=== PATIENT | female | born 1935 | race Caucasian/White ===

== ENCOUNTER 2020-02-04 19:21 | Inpatient (IN) | payer MEDICARE, SELFPAY ==
--- NOTE | 2020-02-04 21:45 | DI.CT_ITS ---
EXAM: CT LOWER EXTREMITY LT WO CLINICAL HISTORY: distal tibia fracture, ?intraarticular split. TECHNIQUE: Imaging Protocol: Axial computed tomography images with coronal and sagittal reformatted images were created and reviewed. COMPARISON: No exams were available for comparison FINDINGS: Bones: There is a comminuted fracture of the proximal diaphysis of the fibula. The distal fracture is displaced laterally and anteriorly 1 shaft's width. The fracture is obliquely oriented. There is a nondisplaced fracture of the anterior aspect of the lateral malleolus. There is a comminuted frac ture involving the distal metadiaphyseal region of the tibia. There is impaction of the fracture. T he distal fracture is mildly posteriorly displaced relative to the proximal fracture. The fracture d oes not extend into the articular surface. There are tiny well corticated osseous fragments at the t ip of the medial malleolus suggesting old injury. The distal femur and patella are unremarkable. Th e visualized tarsal bones are intact. No lytic or sclerotic lesions are identified. Soft Tissues: There is swelling of the soft tissues in the leg. There is atherosclerosis present. IMPRESSION: Fractures involving the proximal and distal fibula and the distal tibia as described above. DATA REPOSITORY: All CT scans at this facility are submitted to the National Radiology Data Registry (NRDR) Dose Index Registry (DIR) with the [employer] ([employer]). RADIATION OPTIMIZATION: All CT scans at this facility use at least one of these dose optimization te chniques: automated exposure control; mA and/or kV adjustment per patient size (includes targeted exa ms where dose is matched to clinical indication); or iterative reconstruction.
[2020-02-04 22:05] VITALS: BP 157/79; PULSE 79; RESP 20; TEMP 37.2; O2SAT 96
[2020-02-04 22:07] VITALS: BP 157/79; PULSE 79; RESP 20; TEMP 37.2; O2SAT 96
--- NOTE | 2020-02-04 22:16 | DI.VRAD_ITS ---
PROCEDURE INFORMATION: Exam: CT Left Lower Extremity With Contrast; Lower Leg Exam date and time: 02/04/2020 19:25 Age: 84 years old Clinical indication: Injury or trauma; Fall; Initial encounter; Blunt trauma; Lower leg; Left; Injury date: 02/04/20; Injury details: Fell on ice, distal tibia FX, ? intraarticular split TECHNIQUE: Imaging protocol: CT of the Left lower extremity with intravenous contrast was performed. Exam focused on the lower leg. Radiation optimization: All CT scans at this facility use at least one of these dose optimization techniques: automated exposure control; mA and/or kV adjustment per patient size (includes targeted exams where dose is matched to clinical indication); or iterative reconstruction. COMPARISON: No relevant prior studies available. FINDINGS: Bones/joints: The bones are demineralized. The distal femur and proximal tibia are intact. Acute oblique fracture proximal fibular diaphysis with 1 shaft with distal lateral angulation and mild distal anterior angulation. Acute nondisplaced fracture of the lateral malleolus . Acute comminuted fracture distal tibial diaphysis, mild distal posterior angulation, moderate sized butterfly fragment medially, medial-lateral alignment nearly anatomic. Mild impaction. There is a very faint fracture component extending distally toward the metaphysis however there is no convincing intra-articular fracture involvement. Coarse calcifications about the ankle are most suggestive of chronic ligamentous injury. The talar dome appears intact. The calcaneus and visualized midfoot appear intact. The patella is intact. No dislocation. Soft tissues: Generalized soft tissue swelling. Vasculature: Atherosclerosis. IMPRESSION: Acute fractures of the proximal fibular diaphysis, distal tibial diaphysis and of the lateral malleolus. Dictated and Authenticated by: Era Serrano MD. Ordering:NORMA Clark MD
[2020-02-05] VITALS (10 sets, daily range): BP systolic 102–163; BP diastolic 65–88; PULSE 82–95; RESP 11–20; TEMP 36.2–36.9; O2SAT 93–98
--- NOTE | 2020-02-05 07:53 | HPE_ITS ---
Date of service: 02/05/20 Time of Service: 06:53 Assessment and Plan Assessment and plan (1) Fracture of tibia with fibula, left, closed: Status: Acute Assessment and plan: Bridget is an 84-year-old who suffered a tib-fib fracture of the left leg. This is a distal diaphyseal fracture with some extension into the metaphysis but no extension of the joint. Given the distal extent of the fracture I do believe we can treat this with intramedullary nail. This would allow mobilization earlier as well as less soft tissue dissection with a given risk of complications. She is a very active 84-year-old, however, she is 84 years old and I was very clear with Bridget that returning home will be challenging. However, I will try to help her accommodate her restrictions to allow her to get home soon as possible. She has no active medical issues. I will obtain an EKG given her intermittent hypertension and her age before surgery. I discussed treatment options with her and I do recommend stabilization of the fracture with an intramedullary device. I discussed the risk to include bleeding, infection, pain, stiffness, damage to nerves and vessels, damage to muscles and tendons, hardware prominence, hardware failure, malunion, nonunion, blood clot, cardiopulmonary demise, weakness. Despite these risks, she elects to proceed. She will be toe-touch weightbearing after the surgery. We will use Lovenox for initial blood clot prevention and then transition to aspirin. Her daughter reports that Bridget has a sensitivity to any stronger pain medication so we will go very cautiously on using these. Qualifiers: Encounter type: initial encounter Qualified Code(s): S82.202A - Unspecified fracture of shaft of left tibia, initial encounter for closed fracture; S82.402A - Unspecified fracture of shaft of left fibula, initial encounter for closed fracture (2) Hypertension: Status: Chronic Assessment and plan: We will continue to follow this conservatively. Her blood pressures have overall been controlled although running slightly high. She does not take anything for this at baseline and therefore I will hold off on giving her anything at this time. Qualifiers: Hypertension type: essential hypertension Qualified Code(s): I10 - Essential (primary) hypertension History of Present Illness History of Present Illness Chief Complaint: Left leg pain Narrative: Bridget is an 84-year-old who was clearing some snow earlier yesterday. Her foot got stuck in the snow when she was hit by falling snow and had a fall with a twisting motion. She had immediate pain. She had crepitus. She is unable to ambulate. She was seen in [facility]. She was diagnosed with a comminuted distal tibia and proximal fibula fracture. She had no loss of consciousness. She denied head trauma. She was evaluated by the emergency department who called me for consultation and transfer. On evaluation this morning, she denies any chest pain or shortness of breath. She has no headache, vision changes, confusion. She denies pain in the right leg. Her pain is been controlled within the splint. She denies numbness or tingling. She has been able to void on the bedpan. Review of Systems All systems reviewed & are unremarkable except as noted in HPI and below [facility] Medical History (Updated 02/05/20 @ 08:03 by Eduardo Cadet MD) Glaucoma (Chronic) Social History Smoking/Tobacco Use Status: Former Tobacco Use Tobacco: How many years used: 50 Alcohol Intake: current Alcohol Intake frequency: 0-2 drinks per day Alcohol type: wine Drug use: Never Substance use type: does not use Do you feel safe at home: Yes Do you feel safe in your relationship?: Yes Meds Home Medications and Allergies Allergies Allergy/AdvReac Type Severity Reaction Status Date / Time egg Allergy Severe Hives Unverified 02/04/20 22:08 strawberry Allergy Intermediate Hives Unverified 02/04/20 22:10 chicken derived AdvReac Intermediate Diarrhea Unverified 02/04/20 22:10 ENVIRONMENTAL AdvReac Mild Other (See Uncoded 02/04/20 22:10 Comment) Exam Const General: cooperative, healthy appearing, comfortable and no acute distress Nutritional Appearance: average body habitus Orientation: alert, awake and oriented x3 HENMT Head: normal to inspection, normocephalic and atraumatic Resp Effort & Inspection: normal respiratory effort Auscultation: clear to auscultation bilaterally Cardio Rate: regular rate Rhythm: regular rhythm Extrem Other: Left lower extremity is in a splint. Due to patient pain, the splint is not fully removed but the Munir wrap was windowed to evaluate the left leg. This showed no skin changes or skin lacerations. She had soft compartments. Faintly palpable DP pulse. She was able to actively flex and extend the great toe. Sensation is grossly intact to light touch of the deep and superficial peroneal nerve and tibial nerve. The foot is warm and well-perfused. Results Imaging Imaging Studies: X-ray of the left tibia and fibula was reviewed from outside hospital. This demonstrates a comminuted distal tibia fracture with a displaced proximal fibula fracture. There is no apparent extension into the joint surface. CT scan of the left lower extremity identifies the distal tibia fracture. It does not show a clear fracture into the joint space. The distal extent of the fracture is approximate 25 mm above the joint surface. There is marked comminution at the level of the fracture with an oblique orientation of the fracture moving a lateral to medial, proximal to distal. There is a comminuted fracture of the proximal fibula with displacement. There also appears to be a small linear fracture within the distal aspect of the fibula. There is no incongruity of the distal tib-fib joint. Joint spaces well-maintained within the tibiotalar joint. Labs Labs: Outside labs were performed and not repeated. They demonstrated a white blood cell count of 12.9, hemoglobin of 12.2, hematocrit 37.7, platelets of 256. Sodium was 141, potassium 4.0, BUN 14, and creatinine 0.6. Her glucose was 94. Last Vital Signs Temp 36.2 C L 02/05/20 07:44 Pulse 92 H 02/05/20 07:44 Resp 17 02/05/20 07:44 BP 123/78 02/05/20 07:44 Pulse Ox 95 02/05/20 07:44 COVID-19 Screening Traveled to [place] from one of the affected countries or regions?: No Recent travel in the [place] within the last 8 weeks?: No Recent out of the country travel within the last 8 weeks?: No Exposure or possible exposure to illness during travel?: No Had IN PERSON contact w/suspected or confirmed C-19 person: No Have you had the following symptoms in the past few days?: No Symptoms noted since travel?: No Symptoms
[2020-02-05] MEDS: Lactated Ringers 1,000 ML 80 ML IV (08:00)
--- NOTE | 2020-02-05 08:50 | ROE_ITS ---
Date of service: 03/21/19 Time of Service: 14:07 Operative Note Operative Note PRE-OP DIAGNOSIS: [SIDE] Tibia and Fibula Fracture POST-OP DIAGNOSIS: same PROCEDURE: [Side] Intramedullary Fixation of Tibia Fracture SURGEON: Eduardo Cadet ANESTHESIA: ROHITH ESTIMATED BLOOD LOSS: 100 PATHOLOGY: none sent COMPLICATIONS: None Patient was transported to: PACU Patient's condition: stable Implants: Depuy-Synthes Tibial Nail EX [11]mm x [length]mm Indications: [Patient name and age] who presented to the Emergency Department after a fall. X-rays confirmed the diagnosis of a [intertrochanteric] fracture of the [SIDE] tibia. I reviewed the possible treatment options and given the fracture, I recommended operative fixation. I discussed the technical details of the surgery. I reviewed the risks such as bleeding, infection, pain, stiffness, malunion, nonunion, hardware prominence, hardware faiilure, malrotation, damage to nerves and vessels, blood clot. Despite these risks, [gender] agreed to proceed. Findings: There was a fracture of the tibia which was reduced with traction and internal rotation and external manipulation. This was secured with the IMN and screws. Procedure Description: [Patient Name] was greeted in the preoperative area. Consent was previously reviewed and signed. Once in the operating room, anesthesia was administered. The patient was transferred to the fracture table in the supine position. [Gender] was positioned in the supine position with the operative side placed onto a bone foam ramp. All bony prominences were well padded. Arms were placed out to the side, padded, and secured. [A single dose of TXA, 1 gram, was then administered IV. ]Prophylactic antibiotics, [Cefazolin 2 grams], was given for prophylactic antibiotics. A timeout was performed for safe surgery. The [side] leg was prepped with Chloraprep. The leg was draped with a stockinette and U drapes. An incision was then made over the lateral aspect of the knee. This was taken down from the midpoint of patella at his lateral margin following the lateral aspect of the patellar tendon down to the tibial tubercle. The skin was incised sharply. The retinacular tissues were then incised sharply as well. The synovium underlying this was visualized and bluntly dissected off of the anterior, proximal tibia. The patella was mobilized medially allowing access to the central portion of the proximal tibia. A starting position in line with the axis of the tibia, approximate the level of the lateral spine, and at the ventral edge of the proximal tibia was made with the awl. X-ray in both the AP and lateral views were used to confirm this positioning. The awl was then advanced manually into the proximal tibia. This was once again confirmed to be in good position on the AP and lateral views. The ball-tipped guidewire was then inserted through the awl and into the proximal tibia. A bend in the guidewire was placed prior to insertion allowing it to make the turn off the back of the tibia. Reduction maneuver was then pe rformed of the fracture. Gentle traction and some internal rotation was used to grossly reduce the fracture fragments. Focus was made sure to restore normal rotational alignment of the leg in length. Individual fragment management was not pursued. [A clamp was used to help secure and hold these pieces in appropriate position.] The ball-tipped guidewire was then advanced across the fracture site into the distal tibia. It was confirmed to be in appropriate positions on both the AP and the lateral. This was then measured. Using a tissue protector to protect proximal tissues, the tibia was reamed from 8.5 mm to [12]mm. The [11]mm x [300]mm Synthes tibial nail EX was opened. The nail was assembled to the aiming arm on the back table and confirmed to be aligned with the trochars for screw insertion. Using manual force the nail was advanced into the tibia. A few light mallet blows advanced the nail through the proximal tibia and down into his final seated position of the distal tibia, approximate the level of the physeal scar. The targeting device was removed. AP and lateral x-rays of both the hip and the knee confirmed appropriate positioning within the femur and with good alignment of the fracture. The c-arm was moved to the knee where perfect circles were obtained for distal screw placement. The skin and deeper tissues were incised down to the femur. The drill was taken through the femur, nail, and opposite cortex. This was measured. The screw was inserted with good purchase and bite. Lateral x-ray showed the screw was through the nail and then an AP image confirmed appopriate length. Final x-rays were obtained. The wounds were thoroughly irrigated. 0.5% Bupivacaine was injected throughout the wounds over the leg. The deep fascia of the proximal two wounds was reapproximated with a 0 Vicryl. The deep tisses were closed with a 2-0 Vicryl and the skin was closed with karla. At the end of the case, all counts were correct. [Name] tolerated the procedure well without known complication and was taken to the PACU for recovery. Physical therapy will start post-operatively, weigh-bearing as tolerated with assistive devices. Anticoagulation will start within 12-24 hours. 3 doses of post-operative antibitiocis for prophylaxis will
--- NOTE | 2020-02-05 09:01 | INITIAL_ITS ---
- If Service Date Differs Date of service: 02/05/20 Time of Service: 09:01 Care Management Initial Assess REASON FOR HOSPITALIZATION:: Fracture tibia and fibula left leg PAST MEDICAL HISTORY/PAST SURGICAL HISTORY:: Glaucoma PREVIOUS FUNCTIONAL STATUS/SOCIAL/FAMILY SUPPORTS:: Bridget lives in [facility] with her Javon. CURRENT FUNCTIONAL STATUS:: Unable to meet with Bridget as she was in surgery most of the day. ADVANCE DIRECTIVES:: None on file CODE STATUS:: Full Code INSURANCE COVERAGE / FINANCIAL ISSUES:: Medicare. AARP PRIMARY CARE PHYSICIAN:: Juan Denson POTENTIAL DISCHARGE NEEDS:: Follow up with PCP and discharge plan of care PATIENT/FAMILY EDUCATION NEEDS:: Discharge plan, limitations, follow up plan and Ask Me Three
--- NOTE | 2020-02-05 11:45 | DI.RAD_ITS ---
EXAM: XR TIB/FIB LT CLINICAL HISTORY: LEFT TIBIAL FX TECHNIQUE: 2D and realtime digital imaging was performed. CONTRAST MATERIAL: Refer to procedure report. COMPARISON: CT LOWER EXTREMITY LT WO from 02/04/2020 ANKLE MIN 3V LT from 02/04/2020 FINDINGS: Fluoroscopy was provided for Dr. Cadet during the performance of a reduction and internal fixatio n of the distal left tibial fracture.. Please refer to the procedure report for complete details. Fluoro time: 184.9 seconds RADIATION DOSE DELIVERED:
[2020-02-05] MEDS: ceFAZolin 2 GM/50 ML BAG IVPB (12:19)
[2020-02-05] MEDS: Normal Saline 1,000 ML 80 ML IV (15:40)
--- NOTE | 2020-02-05 16:31 | PHA.ADMREV ---
Pharmacy Clinical Review - Admission Clinical Review (Last Updated 02/04/20 @ 22:28 by Daphne Valverde LPN) Fracture of tibia with fibula, left, closed (Acute) egg Allergy (Severe, Unverified 02/04/20 22:08) Hives strawberry Allergy (Intermediate, Unverified 02/04/20 22:10) Hives chicken derived Adverse Reaction (Intermediate, Unverified 02/04/20 22:10) Diarrhea ENVIRONMENTAL Adverse Reaction (Mild, Uncoded 02/04/20 22:10) Other (See Comment) Height 5 ft 7 in Weight 83.1 kg TIBIA/FIBULA FRACTURE- SURGERY 02/05/20 - Renal Dosing Medications needing adjustments: Reviewed (No creatinine avail, no labs) - Anticoagulation DVT Prohphylaxis: Reviewed Medications: Enoxaparin (starting 24h post-op) Therapeutic Anticoagulation: N/A - Opiate Usage Evaluate Pain Scale/Pains Meds: Reviewed (Morphine IVP, Tramadol) Scheduled Bowel Reg ordered if on Opiates?: No (no bowel meds ordered) - Relevant Labs Electrolytes, C-Reactive P, ESR: N/A (no labwork available) - Antimicrobial Stewardship Antibiotic appropriateness: N/A Surgical Abx d/c within 24 hr: No (Cefazolin does not have 24 hour stop but will monitor) Culture review/Resistance: N/A - DM Control Insulin Dosing: N/A - Heart Failure/OH EF%, JAZ's, B-Blockers, Diuretics: N/A - BP Control BP Control: Blood Pressure [Right Arm] 163/77 Blood Pressure 148/83 Blood Pressure 154/88 Blood Pressure 159/79 Blood Pressure 159/77 Blood Pressure 156/80 Blood Pressure 139/82 Blood Pressure 150/87 Blood Pressure 123/78 If elevated: Reviewed (no home meds, no BP meds) - QTc Review If Elevated: Reviewed (QTC 423) - IV to PO Switch IV Medications: Reviewed (Toradol, Zofran, Lovenox) - Home Meds Home Med List reviewed: N/A - Current meds Current Medication Order Review: Reviewed (Anticipate discharge soon)
--- NOTE | 2020-02-05 16:51 | ROE_ITS ---
Date of service: 02/05/20 Time of Service: 15:22 Operative Note Operative Note DATE OF PROCEDURE: 02/05/20 PRE-OP DIAGNOSIS: Left Tibia and Fibula Fracture POST-OP DIAGNOSIS: same PROCEDURE: Left Intramedullary Fixation of Tibia Fracture SURGEON: Eduardo Cadet [employer]HALT SURFACE HEATER OPERATOR: Joi Colvin ANESTHESIA: regional and spinal ESTIMATED BLOOD LOSS: 150 PATHOLOGY: none sent TOURNIQUET TIME: 0 COMPLICATIONS: None Patient was transported to: PACU Patient's condition: stable Implants: Depuy-Synthes Tibial Nail EX 11mm x 330mm Indications: Bridget is a 84yo female who presented to the Emergency Department at [facility] in [place], [place] after a fall while removing snow. X-rays confirmed the diagnosis of a comminuted distal tibia fracture of the left tibia along wih a proximal fibula fracture. I reviewed the possible treatment options and given the fracture, I recommended operative fixation. I discussed the technical details of the surgery. I reviewed the risks such as bleeding, infection, pain, stiffness, malunion, nonunion, hardware prominence, h ardware faiilure, malrotation, damage to nerves and vessels, blood clot. Despite these risks, Bridget agreed to proceed. Findings: There was a fracture of the tibia which was reduced with traction and internal rotation and external manipulation, held with a clamp. This was secured with the IMN and screws. Procedure Description: Brigdet was greeted in the preoperative area. Consent was previously reviewed and signed. Once in the operating room, spinal anesthesia was administered. Prior to going into the OR, a popliteal and adductor block was administered by Jaz Serra CRNA and Doug Mcfadden CRNA. The patient was transferred to the fracture table in the supine position. She was positioned in the supine position with the operative side placed onto a bone foam ramp. All bony prominences were well padded. Arms were placed out to the side, padded, and secured. A single dose of TXA, 1 gram, was then administered IV. Prophylactic antibiotics, Cefazolin 2 grams, was given for prophylactic antibiotics. A timeout was performed for safe surgery. The left leg was prepped with Chloraprep. The leg was draped with a stockinette and U drapes and an extremity drape. An incision was then made over the lateral aspect of the knee. This was taken down from the midpoint of patella at the l ateral margin following the lateral aspect of the patellar tendon down to the tibial tubercle. The skin was incised sharply. The retinacular tissues were then incised sharply as well. The synovium underlying this was visualized and bluntly dissected off of the anterior, proximal tibia. The patella was mobilized medially allowing access to the central portion of the proximal tibia. A starting position in line with the axis of the tibia, approximate the level of the lateral spine, and at the ventral edge of the proximal tibia was made with the awl. X-ray in both the AP and lateral views were used to confirm this positioning. The awl was then advanced manually into the proximal tibia. This was once again confirmed to be in good position on the AP and lateral views. The ball-tipped guidewire was then inserted through the awl and into the proximal tibia. A bend in the guidewire was placed prior to insertion allowing it to make the turn off the back of the tibia. Reduction maneuver was then performed of the fracture. Gentle traction and some internal rotation was used to grossly reduce the fracture fragments. Focus was made sure to restore normal rotational alignment of the leg in length. Individual fragment management was not pursued. Going between the lateral and the AP, x-ray was used to confirm reductinon was achieved. A Griggs clamp was used to help secure and hold these pieces in appropriate position. The ball-tipped guidewire was then advanced across the fracture site into the distal tibia. It was confirmed to be in appropriate positions on both the AP and the lateral. This was then measured. Using a tissue protector to protect proximal tissues, the tibia was reamed from 8.5 mm to 12.5mm. The 11mm x 330mm Synthes tibial nail EX was opened. The nail was assembled to the aiming arm on the back table and confirmed to be aligned with the trochars for screw insertion. Using manual force the nail was advanced into the tibia. A few light mallet blows advanced the nail through the proximal tibia and down into the final seated position of the distal tibia, approximately at the level of the physeal scar. AP and lateral x-rays of both the knee and the ankle and the entire tibia was performed. They show appropriate positioning of the tibial nail. Starting distally, perfect circles were obtained for each screw. Three distal locking screws were placed. These were inserted to be bicortical but prominence was attempted to be minimized as much as possible without compromising stability and screw purchase. Attention was then turned to the proximal aspect. Through the targeting arm, two 5.0 millimeter screws were placed. One was placed in the dynamic hole and the other was placed in the static hole. These were placed without difficulty and once again were ensured to be bicortical. The targeting device was removed. AP and lateral x-rays of were taken of the tibia and fibula. The fracture site is once again investigated and showed to be well aligned as was the overall alignment of the leg. The deep tissues and superficial tissues of the leg and the incision sites were injected with a mixture of 50 cc of 0.25% bupivacaine, 30 mg ketorolac, and 10 cc of Exparel. The wounds were thoroughly irrigated. The retinaculum of the knee was reapproximated with a running #1 Vicryl. The deep tissue was closed with a 2-0 Vicryl followed by running 3-0 Monocryl. The smaller wounds for screw placement were closed with Vicryl and Monocryl in a similar fashion. 4x4 gauze and Kerlix dressing was placed over the wounds. These were wrapped in an JAZ wrap. A fracture walker boot was applied. At the end of the case, all counts were correct. Bridget tolerated the procedure well without known complication and was taken to the PACU for recovery. Physical therapy will start post-operatively, partial weightbearing with assistive devices. Anticoagulation will start within 12-24 hours. 3 doses of post-operative antibiotics for prophylaxis will be administered.
[2020-02-05] MEDS: ceFAZolin 1 GM/50 ML BAG IVPB (17:59)
[2020-02-06] VITALS: BP 120/68; PULSE 87; RESP 17; TEMP 36.8; O2SAT 97
[2020-02-06] MEDS: ceFAZolin 1 GM/50 ML BAG IVPB ×2 (01:27→08:57)
[2020-02-06] MEDS: Normal Saline 1,000 ML 80 ML IV (03:55)
[2020-02-06 07:00] LABS: HCT 33.8 % (36.0-46.0); HGB 10.6 g/dL (12.0-15.5); Mean Corp. HGB Concentration 31.4 g/dL (32.0-36.0); Mean Corpuscular Hemoglobin 29.9 pg (27.0-33.0); Mean Corpuscular Volume 95.5 fL (80-95); Mean Platelet Volume 9.8 fL (8.0-11.0); Platelet Count 251 x1000/uL (130-400); RBC 3.54 m/cumm (4.00-5.20); RBC Distribution Width 13.3 % (11.7-14.6)
[2020-02-06 07:25] LABS: Anion Gap 8.8 mmol/L (3-11); BUN 11 mg/dL (7-18); CO2 25.2 mmol/L (21.0-32.0); CREATININE 0.69 mg/dL (0.55-1.02); Calcium 8.6 mg/dL (8.5-10.1); Chloride 108 mmol/L (98-107); Glucose 109 mg/dL (74-106); Potassium 3.9 mmol/L (3.5-5.1); Sodium 142 mmol/L (136-145)
[2020-02-06 07:43] VITALS: BP 143/73; PULSE 84; RESP 17; TEMP 36.8; O2SAT 97
[2020-02-06] MEDS: Acetaminophen 500 MG TAB 1000 MG PO (07:45)
[2020-02-06] MEDS: Enoxaparin 40 MG/0.4 ML SYR SC (07:46)
[2020-02-06 08:04] VITALS: O2SAT 95
--- NOTE | 2020-02-06 08:18 | IN_ITS ---
Date of service: 02/06/20 PT Notes Visit Reasons: LEFT TIB-FIB FRACTURE Inpatient Physical Therapy Evaluation Date: February 06, 2020 Referring Doctor: Eduardo Cadet MD PT Orders: PT CONSULT: Status post left tibia intramedullary nailing. Precautions: Partial weightbearing with boot, fall risk Patient Profile/Admitting Diagnosis: Bridget is an 84-year-old who was clearing some snow 02/04/2020. Her foot got stuck in the snow when she was hit by falling snow and had a fall with a twisting motion. She had immediate pain. She had crepitus. She was unable to ambulate. She was seen in [facility]. She was diagnosed with a comminuted distal tibia and proximal fibula fracture. She had no loss of consciousness. Transferred to [facility] for orthopedic intervention. PMHX: Medical History (Updated 02/05/20 @ 08:03 by Eduardo Cadet MD) Glaucoma (Chronic) Social History/Home Situation: Has 2 homes. Patient lives with her . She will be residing in a home with 1 step into the dwelling with a post for support. This is a single level home. Current Functional Limitations: Ambulation, stair negotiation, weightbearing left lower extremity, functional mobility Equipment Owned/DME: Wheelchair, quad cane, crutches, front wheeled walker. Patient admits she did not use any of these at baseline prior to her injury Subjective: Patient states that she is holding up quite well. Minimal pain complaints. She think she will be staying in the hospital for a couple of days as per her conversation with the doctor. Rested comfortably last night. Objective: General Observation: IV port in left upper extremity Mental Status: Alert and oriented x3 Pain: 2/10 with a sensation in her knee. Denies that it is very painful. ROM: Right Upper Extremity: Glenohumeral joint flexion 120, 140 active assisted, elbow flexion and extension within normal limits, wrist range of motion within functional limits Left Upper Extremity: Glenohumeral joint flexion 90 degrees, 120 active assisted, elbow flexion and extension within normal limits, wrist range of motion within functional limits Right Lower Extremity: Within functional limits hip flexion, abduction, knee flexion, knee extension, ankle range of motion Left Lower Extremity: Hip active range of motion 20 degrees above chair in sitting, abduction within normal limits, knee flexion 105 degrees limited due to approximation of walking boot, extension within normal limits. Ankle range of motion not tested. Did observe patient able to flex and extend toes within basis of walking boot. Strength: Right Upper Extremity: 4/5 glenohumeral joint flexion and abduction, 4+/5 bicep and tricep, good senior clinical research scientist. Left Upper Extremity: 4-/5 glenohumeral joint abduction, 4/5 flexion, 4+/5 bicep and tricep, good senior clinical research scientist. Right Lower Extremity: 4/5 throughout. She is able to maintain 0 degree knee extension with straight leg raise. Plantar and dorsiflexion 4+/5 Left Lower Extremity: Hip flexion 4/5, knee extension 5 degree lag with straight leg raise, hamstring 4-/5. Plantar and dorsiflexion not tested Sensation: Reports intact sensation to light touch throughout bilateral lower extremities Bed Mobility/Transfers: Bed mobility not tested. Start of evaluation patient was seated in automatic recliner. Following ambulation she returned to the recliner. Nursing was notified. Patient did not have chair alarm in place. Sit to stand: Min assist x1 to front wheeled walker. Stand to sit: Contact-guard x1 from front wheeled walker with verbal cues for hand positioning Gait: Patient ambulated 15 feet x 2 with contact-guard x1 with front wheeled walker. She needed numerous reminders of partial weightbearing for left lower extremity. Denied any pain with her ambulation. Also required verbal cues with transitioning/turning/changing directions. Patient denies any dizziness or lightheadedness with ambulation. Balance: Static Sitting: Good Dynamic Sitting: Good Static Standing: Good Dynamic Standing: Fair Special Tests: Mobility Limitations Standardized Measure [facility] AM-PAC 6 clicks Basic Mobility Inpatient Short Form: Raw Score: 18 standardized Score: 43.63 CMS Score: 46.58 CMS Modifier: CK Informed Consent/Education: Patient instructed in purpose of PT consult and plan of care. Assessment: Patient is a 84 year old female referred to physical therapy services with the diagnosis of status post left tibia intramedullary nailing on 02/05/2020. Patient presents with clinical signs and symptoms consistent with post operative diagnosis. Patient presents with clinical signs and symptoms consistent with post operative diagnosis. She currently demonstrates the following impairment level findings: 1. Decreased strength to LLE hip and knee major muscle groups. 2. Impaired standing balance 3. Impaired activity tolerance 4. Limitation of joint range of motion left ankle Impairments are contributing to the following functional limitations: 1: Increased dependence with transfers 2. Inability to safely ambulate without assisstive device and physical assistance 3. Increase completion time for mobility ADL performance 4. Increased fall risk. 5. Inability to negotiate stairs alone safely Patient is assessed as a X low 01980 [] Moderate 50416 [] High 67251 complexity based on the following: History: See above Examination: See above Presentation: Stable Decision Making: Low 13031 Goals: Goals X1 week 1. Supine-Sit: Independent 2. Sit-Supine: Independent 3. Sit-Stand: Supervision with front wheeled walker 4. Stand-Sit: Supervision from front wheeled walker 5. Bed-Chair: Supervision with front wheeled walker 6. Chair-Bed: Supervision with front wheeled walker 7. Gait 150 feet with front wheeled walker and partial weightbearing left lower extremity with supervision 8. Stairs: Patient able to negotiate 1 step up and down as required to enter and exit her home Plan of Care/Treatment Plan: 1x/day, 7 days/week x 1 week. Plan of care has been reviewed with the FORESTRY CONSULTANT providing the service under Physical Therapy direction. Initiate Physical Therapy intervention for strengthening, bed mobility, transfers, gait, stairs, balance training, use of assistive device. DISCHARGE RECOMMENDATIONS: Recommend discharge to home with home health services once medically cleared TREATMENT CODE/TIME: Initial evaluation 19509, 830 to 9:00 Disclaimer: This note was created using [employer] voice recognition software. It was reviewed for major content. However, there may be multiple small discrepancies and errors due to the voice recognition aspects of the software. Thank you for this consult, Dameon Lara PT, DPT
--- NOTE | 2020-02-06 10:27 | W.PM.DS.N ---
Date of service: 02/06/20 Time of Service: 10:28 DS: Diagnosis Discharge Diagnosis (1) Fracture of tibia with fibula, left, closed: Status: Acute (2) Hypertension: Status: Chronic Discharge Plan Disposition Patient Disposition: HOME W/HOME HEALTH SERVICE Condition: Improving Discharge Details Reason For Visit: LEFT TIB-FIB FRACTURE Admit Date/Time: 02/04/20 19:21 Admit Provider: Eduardo Cadet Attending Provider: Eduardo Cadet [facility] Hospital Course: Bridget was admitted directly from [facility] emergency department for a distal tibia and fibula fracture of the left leg. She was taken to the operating room on hospital day #2 and underwent interventional nail fixation of the left distal tib-fib fracture. She was able to manage partial weightbearing postoperatively with no pain complaints. While limited due to the leg, she was able to mobilize with nursing and with physical therapy, well enough to be stable for discharge home with home health services. Home Meds and New Rx's Prescriptions: New aspirin 81 mg tablet,delayed release (DR/EC) 81 mg PO BID Qty: 60 RF: 0 acetaminophen 500 mg tablet 1,000 mg PO Q8H PRN (Reason: pain) Qty: 90 RF: 3 ibuprofen 600 mg tablet 600 mg PO TID PRNQty: 90 RF: 3 tramadol 50 mg tablet 50 mg PO Q6H PRNQty: 10 RF: 0 Discharge Instructions Additional Instructions: Activity: You may put some weight on the leg with the walker boot in place. However, you should use the walker when walking for the first 6 weeks. This will give the leg a time to heal. You should keep the leg elevated as much as possible for the first 2 weeks. You should wear the fracture walking boot when you are up and mobilizing, but may remove it when not and move your ankle as tolerated. Dressings: You should keep the initial dressing on for the first week. After 7 days, you may remove the inital dressing and get the wounds wet in the shower. You should keep it covered with a light gauze dressing or wrap for the first 2 weeks. All sutures are buried in the skin and do not need to be removed. Medications: - You should take Tylenol and Ibuprofen around the clock for baseline pain. - You have been prescribed a stronger pain medication, Tramadol, for breakthrough pain. Follow-up: We will schedule a telephone follow-up in 2 weeks. Office follow-up in 6 weeks. If you have any pressing concerns, please don't hesitate to call Dr. Cadet at the office, , or on his cell, [phone]. 1. Encounter Date and Reason I certify that BRIDGET LEONARDO was seen by Eduardo Cadet MD on 02/06/20 and that I had a [id number] encounter with this patient that meets the physician face to face encounter requirements. 2. Clinical Findings Supporting Skilled Need and Homebound Status I certify that home health services are medically necessary, include either intermittent prison and/or physical/speech therapy, and that this patient is homebound in that absences from the home require considerable and taxing effort and are infrequent or of short duration, or are attributable to the need to receive medical care. [X] (a) Attached documentation from encounter provides clinical findings supporting skilled need and homebound status (including what assistance patient requires to leave the home). The encounter with the patient was in whole, or in part, for the following medical condition, which is the primary reason for home health care: LEFT TIB-FIB FRACTURE [facility]: Physical Therapy: Bridget would benefit from physical therapy to help with her notable gait abnormalities and weakness. She is s/p intramedullary nail fixation of a left distal tibia fracture. She is partial weight bearing of the left leg with the fracture walker boot. She should use an assistive device at all times for mobilization for the first 6 weeks. She may remove the boot when not ambulating or mobilizing and work on gentle range of motion of the foot, ankle, and knee. Speech Therapy: Homebound: Bridget is homebound due to significant weakness and limitations in her ability to ambulate. She is unable to leave her home unassisted. 3. Certification and Authentication I certify that I composed the above information based on my clinical judgement relating to this patient's medical condition and, if applicable, clinical findings communicated to me by the NPP or inpatient physician who performed the Home Health Referral. All further orders will be obtained through Dr. Cadet Stand Alone Forms: Nursing Discharge Form Referrals: Eduardo Cadet MD [ [facility] STAFF PHYSICIAN] - 03/12/20 10:30 am (The office will call in a couple of weeks for a telephone follow up) Activity:: Activity as Tolerated Equipment/Supplies:: No Equipment Needed Diet:: As Tolerated Discharge Orders Discharge Orders: Discharge Order (Routine); Ordered 02/06/20 Ordered By: Eduardo Cadet DS: Summary Status at Discharge Functional status at discharge: uses cane/walker Overall status at discharge: patient is progressing back to baseline Mental Status: mental status grossly normal Speech and Movement: speech and movement normal Mood: congruent mood Affect: normal affect Exam Psych Mental Status: mental status grossly normal Speech and Movement: speech and movement normal Mood: congruent mood Affect: normal affect DS: Data Vitals/I&O Vitals and I&O: Vital Signs Temperature 36.8 C 02/06/20 07:43 Temperature Source Tympanic 02/06/20 07:43 Pulse 84 02/06/20 07:43 Pulse Rhythm Regular 02/06/20 07:50 Respiratory Rate 17 02/06/20 07:43 Respiratory Effort Non-Labored 02/06/20 07:50 Respiratory Depth Normal 02/06/20 07:50 Respiratory Pattern Normal 02/06/20 07:50 Blood Pressure 143/73 H 02/06/20 07:43 Blood Pressure Mean 105 02/05/20 15:47 Pulse Oximetry 95 02/06/20 08:04 Respiratory End-tidal CO2 30 02/05/20 15:48 Oxygen Delivery Method Room Air 02/06/20 08:04 Oxygen Flow Rate 0 02/06/20 08:04 Pain Level 0 02/06/20 07:45 Intake & Output 02/05/20 02/05/20 02/06/20 11:59 23:59 11:59 Intake Total 1400 / 1400 1956.667 / 1956.667 Output Total 350 / 1000 650 / 1000 600 / 600 Balance -350 / 400 750 / 400 1356.667 / 1356.667 Intake: IV 1160 / 1160 1346.667 / 1346.667 Oral 240 / 240 610 / 610 Output: Urine 350 / 850 500 / 850 600 / 600 Estimated Blood Loss 150 / 150 Other: Urine Color Light Ak[place] Yellow Yellow Urine Appearance Clear Clear Clear Urine Odor Normal Comment checked for patency upon arrival to the unit appears to have been emptied in the room previously Stool Size Copious Stool Characteristics Soft Formed Brown Emesis Description None Voiding Methods Bedpan Data Completed and Pending Labs on day of discharge: Labs from last 24 hours 02/06/20 02/06/20 06:35 06:35 WBC 11.10 H RBC 3.54 L Hgb 10.6 L Hct 33.8 L MCV 95.5 H MCH 29.9 MCHC 31.4 L RDW 13.3 Plt Count 251 MPV 9.8 Sodium 142 Potassium 3.9 Chloride 108 H Carbon Dioxide 25.2 Anion Gap 8.8 BUN 11 Creatinine 0.69 Estimated GFR/1.73 m2 >= 60.00 Glucose 109 H Calcium 8.6 PFSH Medical History Glaucoma (Chronic) Social History Smoking/Tobacco Use Status: Former Tobacco Use Tobacco: How many years used: 50 Alcohol Intake: current Alcohol Intake frequency: 0-2 drinks per day Alcohol type: wine Drug use: Never Substance use type: does not use Do you feel safe at home: Yes Do you feel safe in your relationship?: Yes
[2020-02-06 10:52] VITALS: O2SAT 96
[2020-02-06 11:31] VITALS: BP 127/78; PULSE 83; RESP 17; TEMP 36.7; O2SAT 97
--- NOTE | 2020-02-06 19:06 | CMDISCH_ITS ---
LACE Index Scoring Tool - Questions: Length of Stay (in days): 1 Acuity (Admit via E.D.?): No E.D. Visits: 0 - Answers: Total Score: 1 Risk of Readmission: Low Risk Care Management Discharge Reason for Hospitalization: Fracture tibia and fibula left leg Discharge Plan: Bridget will discharge when ready per MD. She reports she will be going to her home in [place], [place] [phone]. She will have new [facility] for [facility] PT; [facility] She will transport home via private vehicle with her . Patient/Family Education Needs: Review of discharge instructions, discuss Ask Me Three. Services Needed at Discharge: Home Health Care Services ([facility]: PT)
--- NOTE | 2020-02-07 08:12 | PT.DS ---
Supervising Provider: Dameon Lara PT Diagnosis: Distal tib-fib fracture left Diagnosis: Distal tib-fib fracture left Weeks Elapsed: week(s) and 0 day(s) Patient Location: [facility] Surg Referring Provider: Date of Service: 02/07/2020 Inpatient Physical Therapy Discharge Summary Referring Doctor: Eduardo Cadet MD PT Orders: PT CONSULT: Status post left tibia intramedullary nailing. Precautions: Partial weightbearing with boot, fall risk THIS DOCUMENT SERVES A SUMMARY OF CARE. NO PT SERVICES WERE PORVIDED ON THIS DATE PATIENT WAS DISCHARGED HOME IN AFTERNOON OF 02/06/2020. Patient Profile/Admitting Diagnosis: Bridget is an 84-year-old who was clearing some snow 02/04/2020. Her foot got stuck in the snow when she was hit by falling snow and had a fall with a twisting motion. She had immediate pain. She had crepitus. She was unable to ambulate. She was seen in [facility]. She was diagnosed with a comminuted distal tibia and proximal fibula fracture. She had no loss of consciousness. Transferred to [facility] for orthopedic intervention. PMHX: Medical History (Updated 02/05/20 @ 08:03 by Eduardo Cadet MD) Glaucoma (Chronic) Social History/Home Situation: Has 2 homes. Patient lives with her . She will be residing in a home with 1 step into the dwelling with a post for support. This is a single level home. Current Functional Limitations: Ambulation, stair negotiation, weightbearing left lower extremity, functional mobility Equipment Owned/DME: Wheelchair, quad cane, crutches, front wheeled walker. Patient admits she did not use any of these at baseline prior to her injury Subjective: None obtained, as patient was discharged home 02/06/2020 in the afternoon following the morning PT initial evaluation. Objective: ROM: Right Upper Extremity: Glenohumeral joint flexion 120, 140 active assisted, elbow flexion and extension within normal limits, wrist range of motion within functional limits Left Upper Extremity: Glenohumeral joint flexion 90 degrees, 120 active assisted, elbow flexion and extension within normal limits, wrist range of motion within functional limits Right Lower Extremity: Within functional limits hip flexion, abduction, knee flexion, knee extension, ankle range of motion Left Lower Extremity: Hip active range of motion 20 degrees above chair in sitting, abduction within normal limits, knee flexion 105 degrees limited due to approximation of walking boot, extension within normal limits. Ankle range of motion not tested. Did observe patient able to flex and extend toes within basis of walking boot. Strength: Right Upper Extremity: 4/5 glenohumeral joint flexion and abduction, 4+/5 bicep and tricep, good needle maker. Left Upper Extremity: 4-/5 glenohumeral joint abduction, 4/5 flexion, 4+/5 bicep and tricep, good needle maker. Right Lower Extremity: 4/5 throughout. She is able to maintain 0 degree knee extension with straight leg raise. Plantar and dorsiflexion 4+/5 Left Lower Extremity: Hip flexion 4/5, knee extension 5 degree lag with straight leg raise, hamstring 4-/5. Plantar and dorsiflexion not tested Sensation: Reports intact sensation to light touch throughout bilateral lower extremities Bed Mobility/Transfers: Bed mobility not tested. Start of evaluation patient was seated in automatic recliner. Following ambulation she returned to the recliner. Nursing was notified. Patient did not have chair alarm in place. Sit to stand: Min assist x1 to front wheeled walker. Stand to sit: Contact-guard x1 from front wheeled walker with verbal cues for hand positioning Gait: Patient ambulated 15 feet x 2 with contact-guard x1 with front wheeled walker. She needed numerous reminders of partial weightbearing for left lower extremity. Denied any pain with her ambulation. Also required verbal cues with transitioning/turning/changing directions. Patient denies any dizziness or lightheadedness with ambulation. Balance: Static Sitting: Good Dynamic Sitting: Good Static Standing: Good Dynamic Standing: Fair Assessment: Patient is a 84 year old female referred to physical therapy services with the diagnosis of status post left tibia intramedullary nailing on 02/05/2020. Patient presents with clinical signs and symptoms consistent with post operative diagnosis. Patient was discharged home in the afternoon following PT initial evaluation. Plan of Care/Treatment Plan: Discharge from PT services in acute care setting. Patient was discharged home. TREATMENT CODE/TIME: None. Disclaimer: This note was created using [employer] voice recognition software. It was reviewed for major content. However, there may be multiple small discrepancies and errors due to the voice recognition aspects of the software. Thank you for this consult, Dameon Lara PT, DPT PT Notes Visit Reasons: LEFT TIB-FIB FRACTURE
== END 2020-02-06 13:20 | disposition home health service (06) | DRG 494 ==
PROVIDERS: Admitting Provider Student in an Organized Health Care Education/Training Program; PCP Internal Medicine; Visit Provider Student in an Organized Health Care Education/Training Program
PROC: 0QSH06Z Reposition Left Tibia with Intramedullary Internal Fixation Device, Open Approach (ICD-10-PCS; CPT 27759; principal; 2020-02-05 11:00)
DX: S82.292A Other fracture of shaft of left tibia, initial encounter for closed fracture (principal); S82.402A Unspecified fracture of shaft of left fibula, initial encounter for closed fracture; W00.0XXA Fall on same level due to ice and snow, initial encounter; I10 Essential (primary) hypertension
CPT/HCPCS: 27759; 36415; 76000; 76942; 80048; 85027; 97161; 99222; 99223; J1650; NC; 73590; 73700; 93005; 93010; J0690; J1100; J2370; J2405; J2704; L4361

== ENCOUNTER → 2020-02-13 09:53 | Outpatient (BNVA) | payer MEDICARE, SELFPAY | PROVIDERS: PCP Internal Medicine; Referring Provider Internal Medicine; Visit Provider Student in an Organized Health Care Education/Training Program | DX: S82.202D Unspecified fracture of shaft of left tibia, subsequent encounter for closed fracture with routine healing (principal); S82.402D Unspecified fracture of shaft of left fibula, subsequent encounter for closed fracture with routine healing; X58.XXXD Exposure to other specified factors, subsequent encounter ==

== ENCOUNTER 2020-03-12 11:08 | Outpatient (CLI) | payer MEDICARE, SELFPAY ==
--- NOTE | 2020-03-12 10:30 | DI.RAD_ITS ---
EXAM: XR TIB/FIB LT CLINICAL HISTORY: F/U FRACTURE TECHNIQUE: COMPARISON: XR TIB/FIB LT from 02/05/2020 FINDINGS: Three views were obtained and show intramedullary ira in place in the tibia. Previously noted fractu res of the distal tibial metaphysis and proximal fibular diaphysis are again seen, no gross interval change in alignment in comparison with intraoperative films of February 04. IMPRESSION:
== END 2020-03-12 11:28 ==
PROVIDERS: PCP Internal Medicine; Referring Provider Internal Medicine; Visit Provider Student in an Organized Health Care Education/Training Program
DX: S82.202D Unspecified fracture of shaft of left tibia, subsequent encounter for closed fracture with routine healing (principal); S82.402D Unspecified fracture of shaft of left fibula, subsequent encounter for closed fracture with routine healing; X58.XXXD Exposure to other specified factors, subsequent encounter
CPT/HCPCS: 73590; L1902

== ENCOUNTER 2020-04-23 15:57 | Outpatient (CLI) | payer MEDICARE, SELFPAY ==
--- NOTE | 2020-04-23 10:00 | DI.RAD_ITS ---
EXAM: XR TIB/FIB LT CLINICAL HISTORY: f/u L tib-fib fracture and IMN fixation. TECHNIQUE: 2D digital imaging was performed COMPARISON: CR XR TIB/FIB LT from 03/12/2020 FINDINGS: There has been no change in alignment of the proximal left fibular fracture. Callus formation has de veloped consistent with some interval healing. There is again seen an intramedullary ria transfixing the distal left tibial fracture. Fracture alig nment is stable. Callus formation has developed consistent with some interval healing. IMPRESSION: Healing left tibial and fibular fractures. DATA REPOSITORY: RADIATION DOSE DELIVERED:
== END 2020-04-23 16:17 ==
PROVIDERS: PCP Internal Medicine; Referring Provider Internal Medicine; Visit Provider Student in an Organized Health Care Education/Training Program
DX: S82.202D Unspecified fracture of shaft of left tibia, subsequent encounter for closed fracture with routine healing (principal); S82.402D Unspecified fracture of shaft of left fibula, subsequent encounter for closed fracture with routine healing; X58.XXXD Exposure to other specified factors, subsequent encounter
CPT/HCPCS: 73590